=== PATIENT | male | born 1955 | race Caucasian/White ===

== ENCOUNTER 2023-10-21 08:19 | Observation (INO) | payer OTHER ==
--- OUTSIDE RECORDS SUMMARY | 2023-10-21 08:26 | XMS REPORT | Continuity of Care Document ---
Author Name Unknown Address [address] [place] [address] [place] [address] thconnect Address [address] [place] [address] [address] [place] [address] Care Team Providers Care Hammer Adjuster Name Role Phone Juan F Snow Attending Clinician Unavailable MANJEET PAT Attending Clinician Unavailable Encounters Start Date/Time End Date/Time Encounter Type Admission Type Attending Clinicians Care Facility Care Department Encounter ID Source 2023-07-30 09:46:00 2023-07-30 09:46:00 Outpatient Juan F Long [facility] [id number] [facility] 2021-12-25 14:05:00 2021-12-25 14:05:00 Outpatient Juan F Long [facility] [id number] [facility] 2021-04-03 10:49:00 2021-04-03 10:49:00 Outpatient MANJEET WALDRON [facility] [id number] [facility]
[2023-10-21 09:09] LABS: Protime INR 1.02
[2023-10-21 09:11] LABS: Hematocrit 48.5 % (39.6-49.0); Lymphocytes % 7.3 % (15.3-44.8); MCV 97.9 fL (80-100); MPV 8.2 fL (7.6-11.3); Platelets 205 thou/uL (152-406); RBC Red Blood Cell Count 4.95 M/uL (4.33-5.43)
[2023-10-21 09:31] LABS: Platelet Estimate ADEQ; White Blood Cell Scan OK (OK)
[2023-10-21 09:32] LABS: Blood Morphology Comment NOT SEEN (NOT SEEN)
[2023-10-21 09:33] LABS: Potassium 4.1 mEq/L (3.5-5.1)
--- NOTE | 2023-10-21 09:34 | RAD REPORT ---
EXAM DESCRIPTION: RAD - Chest Single View - 10/21/2023 9:21 am CLINICAL HISTORY: CHEST PAIN Chest pain. COMPARISON: No comparisons FINDINGS: Portable technique limits examination quality. Mild interstitial prominence bilaterally could be related to viral infection or mild interstitial pul monary edema. The heart is mildly enlarged. No displaced fractures.
--- NOTE | 2023-10-21 09:55 | RAD REPORT ---
EXAM DESCRIPTION: CT - Chest For Pe Angio - 10/21/2023 9:45 am CLINICAL HISTORY: Chest pain. eval for PE COMPARISON: No comparisons TECHNIQUE: CT angiogram of the pulmonary arteries was performed with MIP. All CT scans are performed using dose optimization technique as appropriate and may include automated exposure control or mA/KV adjustment according to patient size. FINDINGS: No evidence of pulmonary thromboembolism. No acute aortic finding demonstrated. Prominent COPD is present. Mild bibasilar lung opacities are present predominantly linear and ground- glass in character. This would favor mild atelectasis and alveolitis. No significant pericardial or pleural fluid. No concerning bony finding. IMPRESSION: No evidence of pulmonary thromboembolism. COPD with evidence of bibasilar lung opacities suggesting subsegmental atelectasis and alveolitis. Re active airway disease or small airway inflammation is possible.
[2023-10-21] MEDS ORDERED: CEFTRIAXONE 1000 MG/VIAL ONE (10:37)
[2023-10-21] MEDS ORDERED: NA CHLORIDE 0.9% 250 ML ONE (10:37)
[2023-10-21] MEDS ORDERED: AZITHROMYCIN 500 MG INJ IVPB ONE (10:37)
--- NOTE | 2023-10-21 10:37 | EDPHYS ---
Physician Documentation [facility] Name: William Blunt Age: 68 yrs Sex: Male : 1955 Arrival Date: 10/21/2023 Time: 08:19 Bed 6 Private MD: ED Physician Clive Bishop HPI: 10/21 09:15 This 68 yrs old Male presents to ER via Ambulatory with complaints of Chest ec2 Pain, Shortness Of Breath. 09:15 Patient arrives today for evaluation of chest pain. Patient reports he started ec2 experiencing some chest pain last night, reports pleuritic component to it. Patient reports chest tightness. Patient reports no previous ACS, no cardiac history. Patient reports no cough or cold symptoms, no vomiting, no fevers, no chills, no leg swelling. Reports no previous history of cardiac disease. Of note patient approximately 1 and half pack per day.. Historical: - Allergies: 08:39 No Known Allergies; iw - Home Meds: 08:39 lisinopril 20 mg Oral tablet [Active]; iw - PMHx: 08:39 Hypertensive disorder; iw - PSHx: 08:39 None; iw - Immunization history:: Adult Immunizations. - Social history:: Smoking status: Patient reports the use of cigarette tobacco products, smokes one pack cigarettes per day. ROS: 09:15 Constitutional: as per hpi ec2 Exam: 09:15 Constitutional: GEN: NAD Head: atraumatic Eyes: EOMI Ears: External ears are ec2 normal. CV: regular rate LUNGS: no respiratory distress ABD: non-distended SKIN: no evidence of rashes MSK: no evidence of trauma, no deformities, no crepitus NEURO: moves all extremities equally Vital Signs: 08:38 BP 140 / 91; Pulse 92; Resp 19; Temp 98.5(O); Pulse Ox 99% ; rs5 08:41 BP 134 / 94; Pulse 90; Resp 18; Temp 98.4; Pulse Ox 94% ; Weight 88 kg; Height 6 ft. 2 iw in. ; Pain 5/10; 10:25 BP 140 / 96; Pulse 88; Resp 17; Pulse Ox 99% on R/A; rs5 08:41 Body Mass Index 24.91 (88.00 kg, 187.96 cm) iw 08:41 Pain Scale: Adult iw MDM: 09:03 Patient medically screened. ec2 09:15 Data reviewed: vital signs. ED course: Patient arrives today for evaluation of chest ec2 pain. Examination remarkable for well-appearing nontoxic individual is otherwise in no acute distress. Will evaluate for ACS and PE with cardiac workup and PEscan. Low suspicion for dissection.. 10:09 ED course: Metabolic profile reassuring., CBC shows slight leukocytosis. BNP minimally ec2 elevated at 129, chest x-ray shows slight cardiomegaly with interstitial edema, CT scan of the chest shows COPD with bibasilar lung opacities, alveolitis versus possible atelectasis. Will give the patient antibiotics. . 10/21 08:29 Order name: Basic Metabolic Panel rn 10/21 08:29 Order name: CBC with Diff; Complete Time: 09:58 rn 10/21 08:29 Order name: NT PRO-BNP rn 10/21 08:29 Order name: PT-INR; Complete Time: 09:58 rn 10/21 08:29 Order name: Troponin HS rn 10/21 09:17 Order name: CBC Smear Scan; Complete Time: 09:58 EDMS 10/21 10:10 Order name: Blood Culture Adult (2) ec2 10/21 10:10 Order name: Lactate w/ 2H reflex if indic. ec2 10/21 10:10 Order name: Ptt, Activated ec2 10/21 10:52 Order name: Urinalysis w/ reflexes EDMS 10/21 10:52 Order name: Basic Metabolic Panel EDMS 10/21 10:52 Order name: Basic Metabolic Panel EDMS 10/21 10:52 Order name: Basic Metabolic Panel EDMS 10/21 10:52 Order name: Basic Metabolic Panel EDMS 10/21 10:52 Order name: Basic Metabolic Panel EDMS 10/21 10:52 Order name: CBC with Automated Diff EDMS 10/21 10:52 Order name: CBC with Automated Diff EDMS 10/21 10:52 Order name: CBC with Automated Diff EDMS 10/21 10:52 Order name: CBC with Automated Diff EDMS 10/21 10:52 Order name: CBC with Automated Diff EDMS 10/21 10:52 Order name: Lipid Profile EDMS 10/21 10:52 Order name: Lipid Profile EDMS 10/21 10:52 Order name: Magnesium EDMS 10/21 10:52 Order name: Magnesium EDMS 10/21 10:52 Order name: Magnesium EDMS 10/21 10:52 Order name: Magnesium EDMS 10/21 10:52 Order name: Magnesium EDMS 10/21 10:52 Order name: Troponin High Sensitivity [facility] 10/21 10:52 Order name: Troponin High Sensitivity [facility] 10/21 10:52 Order name: Troponin High Sensitivity [facility] 10/21 10:52 Order name: Troponin High Sensitivity [facility] 10/21 08:29 Order name: XRAY Chest (1 view); Complete Time: 09:58 rn 10/21 09:09 Order name: CT Chest For PE Angio; Complete Time: 09:58 2 10/21 08:29 Order name: EKG; Complete Time: 08:30 rn 10/21 10:48 Order name: CONS Physician Consult [facility] 10/21 08:29 Order name: Cardiac monitoring; Complete Time: 09:17 rn 10/21 08:29 Order name: EKG - Nurse/Tech; Complete Time: 09: rn 10/21 08:29 Order name: IV Saline Lock; Complete Time: 09: rn 10/21 08:29 Order name: Labs collected and sent; Complete Time: 09:17 rn 10/21 08:29 Order name: O2 Per Protocol; Complete Time: 09: rn 10/21 08:29 Order name: O2 Sat Monitoring; Complete Time: 09: rn 10/21 10:10 Order name: Accucheck; Complete Time: 10:57 2 10/21 10:10 Order name: IV Saline Lock - Large Bore; Complete Time: 10:57 2 10/21 10:10 Order name: Vital Signs; Complete Time: 10:56 2 10/21 10:15 Order name: Labs - recollect needed: green top; Complete Time: 10:46 bc6 Administered Medications: 10:56 Drug: Rocephin IV 1 grams IV at calculated rate once; Given slow IV push per pharmacy rs5 instructions Route: IV; Rate: calculated rate; Site: left antecubital; 11:10 Follow up: Response: No adverse reaction rs5 10:56 Drug: AZITHromycin IVPB 500 mg IVPB once over 1 hrs; (mix in 250 mL NS) Route: IVPB; rs5 Infused Over: 1 hrs; Site: left antecubital; 11:15 Follow up: Response: No adverse reaction rs5 11:19 Drug: Ketorolac IVP 15 mg IVP once Route: IVP; Site: left antecubital; rs5 11:40 Follow up: Response: No adverse reaction rs5 Disposition Summary: 10/21/23 10:36 Hospitalization Ordered Notes: Hospitalization Status: Inpatient Admission ec2 Provider: Pradeep Rahman ec2 Condition: Stable ec2 Problem: new ec2 Symptoms: are unchanged ec2 Bed/Room Type: Standard ec2 Location: Telemetry/MedSurg (Inpatient)(10/21/23 17:25) as6 Room Assignment: 224(10/21/23 17:25) as6 Diagnosis - Pneumonia, unspecified organism ec2 Forms: - Medication Reconciliation Form ec2 - SBAR form ec2 - Leadership Thank You Letter ec2 Signatures: Dispatcher [employer] EDMS Angelika Tate RN RN iw Alexander Manning MD MD rn Slawson, Ashby, RN RN as6 Shante Mayo RN RN kb3 Eduardo Jerez RN RN rs5 Karol Chamberlain6 Clive Bishop MD MD ec2 Corrections: (The following items were deleted from the chart) 09:18 09:15 ED course: Patient arrives today for evaluation of chest pain. Examination ec2 remarkable for reproducible chest wall TTP, will obtain cardiac workup, treat the patient pain with Toradol. Currently evaluating for ACS, will suspicion for PE dissection. Additionally considering costochondritis.. ec2 09:18 09:15 Patient arrives today for evaluation of chest pain. Patient reports he started ec2 experiencing some chest pain last night, reports pleuritic component to it. Patient reports chest tightness. Patient reports no previous ACS, no cardiac history. Patient reports no cough or cold symptoms, no vomiting, no fevers, no chills, no leg swelling. Reports no previous history of cardiac disease.. ec2 09:18 09:15 Constitutional: GEN: NAD Head: atraumatic Eyes: EOMI Ears: External ears are ec2 normal. CV: regular rate LUNGS: no respiratory distress ABD: non-distended SKIN: no evidence of rashes MSK: no evidence of trauma, reproducible chest wall TTP, no deformities, no crepitus NEURO: moves all extremities equally ec2 13:34 10:36 Telemetry/MedSurg (Inpatient) ec2 kb3 13:34 10:36 ec2 kb3 17:25 13:34 [facility] ER HOLD kb3 as6 17:25 13:34 ERHOLD- kb3 as6
--- NOTE | 2023-10-21 10:37 | ER ---
Nurse's Notes [facility] Name: William Blunt Age: 68 yrs Sex: Male : 1955 Arrival Date: 10/21/2023 Time: 08:19 Bed 6 Private MD: Diagnosis: Pneumonia, unspecified organism Presentation: 10/21 08:38 Chief complaint: Patient states: chest pain when he takes a deep breath , started iw yesterday , he was not feeling well last night, he can only take shallow breaths, denies cough , no fever, smokes 1.5 ppd. Coronavirus screen: Client presents with at least one sign or symptom that may indicate coronavirus-19. Ebola Screen: Patient negative for fever greater than or equal to 101.5 degrees Fahrenheit, and additional compatible Ebola Virus Disease symptoms Patient denies exposure to infectious person. Patient denies travel to an Ebola-affected area in the 21 days before illness onset. No symptoms or risks identified at this time. 08:38 Method Of Arrival: Ambulatory iw 08:38 Acuity: ROMULO 3 iw 08:38 Initial Sepsis Screen: Does the patient meet any 2 criteria? No. Patient's initial rs5 sepsis screen is negative. Does the patient have a suspected source of infection? No. Patient's initial sepsis screen is negative. Risk Assessment: Do you want to hurt yourself or someone else? Patient reports no desire to harm self or others. Onset of symptoms was October 20, 2023. Historical: - Allergies: 08:39 No Known Allergies; iw - Home Meds: 08:39 lisinopril 20 mg Oral tablet [Active]; iw - PMHx: 08:39 Hypertensive disorder; iw - PSHx: 08:39 None; iw - Immunization history:: Adult Immunizations. - Social history:: Smoking status: Patient reports the use of cigarette tobacco products, smokes one pack cigarettes per day. Screenin:45 [facility] ED Fall Risk Assessment (Adult) History of falling in the last 3 months, rs5 including since admission No falls in past 3 months (0 pts) Confusion or Disorientation No (0 pts) Intoxicated or Sedated No (0 pts) Impaired Gait No (0 pts) Mobility Assist Device Used No (0 pt) Altered Elimination No (0 pt) Score/Fall Risk Level 0 - 2 = Low Risk Oriented to surroundings, Maintained a safe environment. Abuse screen: Denies threats or abuse. Nutritional screening: No deficits noted. Tuberculosis screening: No symptoms or risk factors identified. Assessment: 08:45 General: Appears in no apparent distress. uncomfortable, Behavior is calm, cooperative. rs5 Pain: Complains of pain in chest Pain does not radiate. Pain currently is 7 out of 10 on a pain scale. Quality of pain is described as aching, Pain began 1 day ago. Is continuous. Neuro: Level of Consciousness is awake, alert, obeys commands, Oriented to person, place, time, situation. Cardiovascular: Patient's skin is warm and dry. Rhythm is regular. 08:45 Respiratory: Airway is patent Respiratory effort is even, unlabored, Respiratory rs5 pattern is regular, symmetrical, Parent/caregiver reports the patient having shortness of breath pain with movement. GI: Abdomen is round non-distended, Abd is soft and non tender X 4 quads. : No signs and/or symptoms were reported regarding the genitourinary system. EENT: No signs and/or symptoms were reported regarding the EENT system. Derm: Skin is intact, Skin is pink, warm \T\ dry. Musculoskeletal: Range of motion: intact in all extremities. 09:50 Reassessment: Patient and/or family updated on plan of care and expected duration. Pain rs5 level reassessed. Patient is alert, oriented x 3, equal unlabored respirations, skin warm/dry/pink. Patient denies pain at this time. Patient states feeling better. Patient states symptoms have improved. 10:10 Reassessment: No changes from previously documented assessment. rs5 20:03 Reassessment: report attempted. tm6 Vital Signs: 08:38 BP 140 / 91; Pulse 92; Resp 19; Temp 98.5(O); Pulse Ox 99% ; rs5 08:41 BP 134 / 94; Pulse 90; Resp 18; Temp 98.4; Pulse Ox 94% ; Weight 88 kg; Height 6 ft. 2 iw in. ; Pain 5/10; 10:25 BP 140 / 96; Pulse 88; Resp 17; Pulse Ox 99% on R/A; rs5 08:41 Body Mass Index 24.91 (88.00 kg, 187.96 cm) iw 08:41 Pain Scale: Adult iw ED Course: 08:26 Patient arrived in ED. kj1 08:29 Alexander Manning MD is Attending Physician. rn 08:39 Triage completed. iw 08:41 Arm band placed on. iw 08:45 Patient has correct armband on for positive identification. Bed in low position. Call rs5 light in reach. Side rails up X2. Client placed on continuous cardiac and pulse oximetry monitoring. NIBP monitoring applied. 08:45 No provider procedures requiring assistance completed. rs5 08:50 Inserted saline lock: 22 gauge in right forearm, using aseptic technique. iw 09:03 Clive Bishop MD is Attending Physician. ec2 09:09 Patient maintains SpO2 saturation greater than 95% on room air. iw 09:23 XRAY Chest (1 view) In Process Unspecified. EDMS 09:47 CT Chest For PE Angio In Process Unspecified. EDMS 10:35 Eduardo Jerez, CHRISTIAN is Primary Nurse. rs5 10:36 Pradeep Rahman MD is Hospitalizing Provider. ec2 10:40 Lab(s) recollected, by me, sent to lab. First set of blood cultures drawn by me. em1 10:40 Patient admitted, IV remains in place. rs5 10:46 Troponin HS Sent. em1 10:47 Lactate w/ 2H reflex if indic. Sent. em1 10:47 Ptt, Activated Sent. em1 Administered Medications: 10:56 Drug: Rocephin IV 1 grams IV at calculated rate once; Given slow IV push per pharmacy rs5 instructions Route: IV; Rate: calculated rate; Site: left antecubital; 11:10 Follow up: Response: No adverse reaction rs5 10:56 Drug: AZITHromycin IVPB 500 mg IVPB once over 1 hrs; (mix in 250 mL NS) Route: IVPB; rs5 Infused Over: 1 hrs; Site: left antecubital; 11:15 Follow up: Response: No adverse reaction rs5 11:19 Drug: Ketorolac IVP 15 mg IVP once Route: IVP; Site: left antecubital; rs5 11:40 Follow up: Response: No adverse reaction rs5 Medication: 11:22 VIS not applicable for this client. rs5 Outcome: 10:36 Decision to Hospitalize by Provider. ec2 10:40 Admitted to ER Hold. Please see [facility] for further documentation. rs5 10:40 Condition: stable 10:40 Instructed on the need for admit, 20:32 Patient left the ED. jb4 Signatures: Dispatcher [employer] Angelika Conway, RN Alexander Orona MD MD rn Martinez, Eric em1 Luciano Roman RN RN jb4 Naheed Adler kj1 Eduardo Jerez RN RN rs5 Clive Bishop MD MD ec2 Lorin Lane RN RN tm6
--- NOTE | 2023-10-21 10:44 | P.HP ---
Certification for Inpatient Patient admitted to: Observation With expected LOS: <2 Midnights Practitioner: I am a practitioner with admitting privileges, knowledge of patient current condition, hospital course, and medical plan of care. Services: Services provided to patient in accordance with Admission requirements found in Title 42 Section 412.3 of the Code of Federal Regulations Patient History Date of Service: 10/21/23 Reason for admission: Chest pain, shortness of breath History of Present Illness: 68-year-old male with a past medical history of hypertension, tobacco use, presents to the emergency room with chest pain shortness of breath. He reports shortness of breath chest pain started yesterday. He reports pleuritic chest pain, he denies history of [place], no history of cardiovascular stents. Reports taking lisinopril 20 mg daily for hypertension. He reports smoking 1 to 2 packs of cigarettes daily. He denies leg swelling, dizziness, nausea vomiting diarrhea, productive cough. He reports recent colonoscopy with Dr. Maldonado for abnormal Cologuard, he is completed colonoscopy and he is scheduled for outpatient EGD. Plan to admit for pneumonia, pleuritic chest pain, dyspnea. Vital signs BP 134 / 94; Pulse 90; Resp 18; Temp 98.4; Pulse Ox 94% ; Weight 88 kg; Height 6 ft. 2 iw in. ; Pain 5/10; CT scan of the chest shows COPD with bibasilar lung opacities, alveolitis versus possible atelectasis. Will give the patient antibiotics, pulmonary, laboratory evaluation mild leukocytosis 13.50, early left shift 81.7, mild hyponatremia 135 BNP elevated at 129 troponin 3.8 Allergies No Known Allergies Allergy (Unverified 10/21/23 10:53) Review of Systems per HPI Physical Examination - Physical Exam General: Alert, In no apparent distress, Oriented x3 HEENT: Atraumatic, Normocephalic Neck: Supple, 2+ carotid pulse no bruit Respiratory: Normal air movement, Diminished Cardiovascular: Normal pulses, Regular rate/rhythm Capillary refill: <2 Seconds Gastrointestinal: Normal bowel sounds, Soft and benign Musculoskeletal: No clubbing, No swelling Integumentary: No rashes, No breakdown Neurological: Normal speech, Normal strength at 5/5 x4 extr - Studies Laboratory Data (last 24 hrs) 10/21/23 10/21/23 10/21/23 08:50 08:50 08:50 WBC 13.50 H Hgb 17.4 Hct 48.5 Plt Count 205 PT 11.2 INR 1.02 Sodium 135 L Potassium 4.1 BUN 9 Creatinine 0.95 Glucose 148 H Assessment and Plan - Plan Assessment plan Acute hypoxic respiratory failure secondary to pneumonia COPD exacerbation Tobacco use Heavy tobacco use Pulmonary consult, IV antibiotics, nebs, Educated on tobacco cessation laboratory evaluation mild leukocytosis 13.50, early left shift 81.7, mild hyponatremia 135 BNP elevated at 129 troponin 3.8 He reports smoking 1 to [address] daily CT scan of the chest shows COPD with bibasilar lung opacities, alveolitis versus possible atelectasis. Will give the patient antibiotics, pulmonary, laboratory evaluation mild leukocytosis 13.50, early left shift 81.7, NicoDerm patches Chest pain Elevated BNP Essential hypertension Echo, trend troponins, BNP elevated at 129, troponin 3.8 Reports taking lisinopril 20 mg daily for hypertension. Vital signs BP 134 / 94; Pulse 90; Resp 18; Temp 98.4; Pulse Ox 94% ; Weight 88 kg; Height 6 ft. 2 iw in. ; Pain 5/10; Echo ordered Mild hyponatremia Sodium 135 Full code DVT Lovenox Diet cardiac Discharge Plan: Home Plan to discharge in: 24 Hours - Advance Directives Does patient have a Living Will: No Does patient have a Durable POA for Healthcare: No - Code Status/Comfort Care Code Status: Full Code Critical Care: No Time Spent Managing Pts Care (In Minutes): 55
[2023-10-21] MEDS ORDERED: ACETAMINOPHEN 500 MG TAB PO PRN (10:47)
[2023-10-21] MEDS ORDERED: ONDANSETRON 4 MG/2 ML VIAL IV PRN (10:47)
[2023-10-21] MEDS ORDERED: ALBUTEROL 2.5 MG/3 ML NEB SOL NEB PRN (10:47)
[2023-10-21] MEDS ORDERED: MORPHINE 2 MG/ML SYR IV PRN (10:50)
[2023-10-21] MEDS ORDERED: KETOROLAC 30 MG/ML INJ ONE (11:16)
[2023-10-21 11:57] LABS: Troponin High Sensitivity 3.8 pg/mL (<58.9)
--- NOTE | 2023-10-21 12:43 | P.CNS ---
Date of Consult: 10/21/23 Reason for Consult: COPD exacerbation Chief Complaint: Shortness of breath upper upper abdominal discomfort History of Present Illness: Patient is 68 years of age a very heavy smoker admitted with acute on chronic worsening of shortness of breath prior history of COPD complains sudden onset of upper abdominal discomfort which has resolved no other past medical history Allergies No Known Allergies Allergy (Unverified 10/21/23 10:53) Review of Systems 10-point ROS is otherwise unremarkable Respiratory: Shortness of Breath Physical Examination Temp Pulse Resp BP Pulse Ox 98 F 90 15 119/71 95 10/21/23 12:00 10/21/23 12:00 10/21/23 12:00 10/21/23 12:00 10/21/23 12:00 General: Alert, Oriented x3 HEENT: Atraumatic Neck: Supple Respiratory: Clear to auscultation bilaterally, Diminished Cardiovascular: No edema, Regular rate/rhythm, Normal S1 S2 Gastrointestinal: Normal bowel sounds, Soft and benign Musculoskeletal: No clubbing, No swelling Laboratory Data (last 24 hrs) 10/21/23 10/21/23 10/21/23 10:40 08:50 08:50 WBC 13.50 H Hgb 17.4 Hct 48.5 Plt Count 205 PT 11.2 INR 1.02 APTT 32.4 Sodium Potassium BUN Creatinine Glucose 10/21/23 08:50 WBC Hgb Hct Plt Count PT INR APTT Sodium 135 L Potassium 4.1 BUN 9 Creatinine 0.95 Glucose 148 H - Problems (1) COPD exacerbation Current Visit: Yes Status: Acute Plan: Patient is 68 years of age very heavy smoker admitted with COPD exacerbation chest x-ray shows COPD changes CT angiogram is negative mild interstitial basal changes commend starting patient on some steroids inhalers possible mild pneumonia add p.o. doxycycline patient is not risk for resistant organisms add Dulera p.o. prednisone signs stable oxygenation satisfactory and no longer has any abdominal discomfort (2) Nicotine use disorder Current Visit: Yes Status: Acute Plan: Patient smokes heavily recommend use of Chantix and NicoDerm patches counseled about smoking also about the risk of lung cancer performed and he needs to have yearly CAT scans done until the age of 79
[2023-10-21] MEDS: predniSONE 20 MG TAB PO SCH (13:00)
[2023-10-21] MEDS: DULERA 200/5 (MOMETASONE/FORMOTEROL) INHALER IH SCH (13:00)
[2023-10-21] MEDS ORDERED: predniSONE 20 MG TAB ONE (14:17)
[2023-10-21 14:22] VITALS: BMI 25.7
[2023-10-21] MEDS: NICOTINE 21 MG/PAT TD SCH (20:56)
[2023-10-21] MEDS: DOXYCYCLINE 100 MG CAP PO SCH (20:57)
[2023-10-21 21:56] LABS: Specific Gravity > 1.030 (1.005-1.030); Urine Bacteria None Seen /HPF (<20); Urine Bilirubin NEGATIVE (Negative); Urine Blood Negative (Negative); Urine Clarity Clear (Clear); Urine Color Yellow (Yellow); Urine Glucose 1+ (Negative); Urine Protein TRACE (Negative); Urine RBC <5 /HPF (None Seen); Urine Urobilinogen Normal (Normal); Urine pH 6.5 (5.0-7.0)
[2023-10-22 04:43] LABS: Absolute Lymphocytes (CBC) 1.2 K/uL (0.7-4.9); Hematocrit 45.5 % (39.6-49.0); Lymphocytes % 9.2 % (15.3-44.8); MCV 98.5 fL (80-100); MPV 8.2 fL (7.6-11.3); Platelets 197 thou/uL (152-406); RBC Red Blood Cell Count 4.62 M/uL (4.33-5.43)
[2023-10-22 05:19] LABS: Magnesium 2.3 mg/dL (1.6-2.4); Phosphorus 3.9 mg/dL (2.5-4.9); Potassium 4.2 mEq/L (3.5-5.1); Troponin High Sensitivity 7.7 pg/mL (<58.9)
--- NOTE | 2023-10-22 07:10 | P.DS ---
Admission Date: 10/21/23 Discharge Date: 10/22/23 Disposition: ROUTINE DISCHARGE Discharge Condition: FAIR Reason for Admission: Chest pain, shortness of breath Brief History of Present Illness: 68-year-old male with a past medical history of hypertension, tobacco use, presents to the emergency room with chest pain shortness of breath. He reports shortness of breath chest pain started yesterday. He reports pleuritic chest pain, he denies history of [place], no history of cardiovascular stents. Reports taking lisinopril 20 mg daily for hypertension. He reports smoking 1 to 2 packs of cigarettes daily. He denies leg swelling, dizziness, nausea vomiting diarrhea, productive cough. He reports recent colonoscopy with Dr. Maldonado for abnormal Cologuard, he is completed colonoscopy and he is scheduled for outpatient EGD. Plan to admit for pneumonia, pleuritic chest pain, dyspnea. Vital signs BP 134 / 94; Pulse 90; Resp 18; Temp 98.4; Pulse Ox 94% ; Weight 88 kg; Height 6 ft. 2 iw in. ; Pain 5/10; CT scan of the chest shows COPD with bibasilar lung opacities, alveolitis versus possible atelectasis. Will give the patient antibiotics, pulmonary, laboratory evaluation mild leukocytosis 13.50, early left shift 81.7, mild hyponatremia 135 BNP elevated at 129 troponin 3.8 Hospital Course: 68 year-old male patient presented with chest pain, shortness of breath. Was noted to have pneumonia. Condition improved with IV antibiotics, nebulizers. Pulmonary consult. Patient tolerating diet, stable for discharge to home with follow-up appointment with primary care physician, sleep lab technician PROBLEM: Pneumonia COPD exacerbation Tobacco use Chest pain Abnormal EKG New prescriptions doxycycline antibiotic 1 twice daily for 7 days Albuterol inhaler 1-2 puffs every 4-6 hours as needed for cough shortness of breath wheezing, Dulera inhaler 2 puffs twice daily for 30 days Nicotine patch 1 daily for 30 days Prednisone 20 mg 1 tablet twice daily for 5 days Educated on the risks of smoking, encourage smoking cessation patient verbalized understanding Serial troponins was negative, lipid panel was normal CTA of the chest COPD with evidence of bibasilar lung opacities suggesting subsegmental atelectasis and alveolitis. Reactive airway disease or small airway inflammation is possible. Follow-up with sleep lab technician Recommend tobacco cessation Continue home medicines as previously prescribed Discharged home on antibiotics doxycycline, Dulera p.o. prednisone, GOAL: Clear understanding of disease process INSTRUCTIONS: Physician Discharge Instructions: -Follow-up with PCP in 1 to 2 weeks -Please call Dr. Rahman at [phone] if any questions regarding hospital stay -Please call nursing station at [phone] if any nursing or medication questions -Return to the emergency room if symptoms worsen Diet: ADA, low sodium Activity: Fall precautions : Vital Signs/Physical Exam: Temp Pulse Resp BP Pulse Ox 98.2 F 89 16 117/70 97 10/22/23 04:00 10/22/23 04:00 10/22/23 04:00 10/22/23 04:00 10/22/23 04:00 Laboratory Data at Discharge: WBC 12.50 thou/uL (4.3-10.9) H 10/22/23 04:22 Hgb 16.3 g/dL (13.6-17.9) 10/22/23 04:22 Hct 45.5 % (39.6-49.0) 10/22/23 04:22 Plt Count 197 thou/uL (152-406) 10/22/23 04:22 PT 11.2 SECONDS (9.5-12.5) 10/21/23 08:50 INR 1.02 10/21/23 08:50 APTT 32.4 SECONDS (24.3-36.9) 10/21/23 10:40 Sodium 136 mEq/L (136-145) 10/22/23 04:22 Potassium 4.2 mEq/L (3.5-5.1) 10/22/23 04:22 BUN 12 mg/dL (7-18) 10/22/23 04:22 Creatinine 1.06 mg/dL (0.70-1.30) 10/22/23 04:22 Glucose 152 mg/dL (74-106) H 10/22/23 04:22 Phosphorus Cancelled 10/22/23 05:00 Magnesium 2.3 mg/dL (1.6-2.4) 10/22/23 04:22 Triglycerides 59 mg/dL (<150) 10/22/23 04:22 Cholesterol 152 mg/dL (<200) 10/22/23 04:22 HDL Cholesterol 60 mg/dL (40-60) 10/22/23 04:22 Cholesterol/HDL Ratio 2.53 10/22/23 04:22 Home Medications: Doxycycline Hyclate 100 mg PO BID 7 Days #14 tab 10/21/23 lisinopriL [Lisinopril] 20 mg PO DAILY 10/21/23 Albuterol Inhaler [Ventolin Inhaler*] 2 puff IH Q6H PRN 14 Days #1 inh 10/22/23 Mometasone/Formoterol [Dulera 200 Mcg/5 Mcg Inhaler] 2 puff IH BID 30 Days #1 inhaler 10/22/23 Nicotine [Nicoderm*] 21 mg TD DAILY 30 Days #30 patch 10/22/23 predniSONE [Prednisone*] 20 mg PO BID 5 Days #10 tab 10/22/23 New Medications: Doxycycline Hyclate 100 mg PO BID 7 Days #14 tab Mometasone/Formoterol [Dulera 200 Mcg/5 Mcg Inhaler] 2 puff IH BID 30 Days #1 inhaler Nicotine [Nicoderm*] 21 mg TD DAILY 30 Days #30 patch predniSONE [Prednisone*] 20 mg PO BID 5 Days #10 tab Albuterol Inhaler [Ventolin Inhaler*] 2 puff IH Q6H PRN 14 Days #1 inh PRN Reason: Shortness Of Breath Physician Discharge Instructions: 68 year-old male patient presented with chest pain, shortness of breath. Was noted to have pneumonia. Condition improved with IV antibiotics, nebulizers. Pulmonary consult. Patient tolerating diet, stable for discharge to home with follow-up appointment with primary care physician, sleep lab technician PROBLEM: Pneumonia COPD exacerbation Tobacco use Chest pain CTA of the chest COPD with evidence of bibasilar lung opacities suggesting subsegmental atelectasis and alveolitis. Reactive airway disease or small airway inflammation is possible. Follow-up with sleep lab technician Recommend tobacco cessation Continue home medicines as previously prescribed Discharged home on antibiotics doxycycline, Dulera p.o. prednisone, GOAL: Clear understanding of disease process INSTRUCTIONS: Physician Discharge Instructions: -Follow-up with PCP in 1 to 2 weeks -Please call Dr. Rahman at [phone] if any questions regarding hospital stay -Please call nursing station at [phone] if any nursing or medication questions -Return to the emergency room if symptoms worsen Diet: ADA, low sodium Activity: Fall precautions Diet: AHA Activity: Fall precautions Followup: Juan F Snow MD [Primary Care Provider] - Alfonso Frye MD [ACTIVE - CAN ADMIT] - Time spent managing pt's care (in minutes): 55
[2023-10-22] MEDS: ENOXAPARIN 40 MG/0.4 ML SQ SCH (08:26)
[2023-10-22] MEDS ORDERED: CEFTRIAXONE 1,000 MG in NA CHLORIDE 0.9% 50 ML IVPB SCH (09:00)
[2023-10-22] MEDS ORDERED: AZITHROMYCIN IV 500 MG in NA CHLORIDE 0.9% 250 ML IVPB SCH (09:00)
[2023-10-22 09:10] VITALS: O2SAT 97
[2023-10-22 09:59] VITALS: TEMP 97.8
--- NOTE | 2023-10-22 11:42 | P.PN ---
Subjective Date of Service: 10/22/23 Chief Complaint: COPD exacerbation Subjective: Improving (Patient is improving doing better tolerating Dulera) Review of Systems Unremarkable Physical Examination - Vital Signs Temperature: 97.8 F Blood Pressure: 127/79 Pulse: 82 Respirations: 18 Pulse Ox (%): 94 - Physical Exam General: Alert, Oriented x3 Respiratory: Clear to auscultation bilaterally Cardiovascular: No edema, Regular rate/rhythm Assessment And Plan - Current Problems (Diagnosis) (1) COPD exacerbation Current Visit: Yes Status: Acute Plan: Patient admitted with COPD exacerbation doing better we will discharge on doxycycline prednisone and Dulera opponent's are negative white count is declining vital signs are stable blood pressure satisfactory oxygenation satisfactory will be discharged follow-up with me in 2 weeks (2) Nicotine use disorder Current Visit: Yes Status: Acute Plan: Patient smokes heavily recommend use of Chantix and NicoDerm patches counseled about smoking also about the risk of lung cancer performed and he needs to have yearly CAT scans done until the age of 79
--- NOTE | 2023-10-22 12:54 | ECHO ---
HEIGHT: 6 ft 2 in WEIGHT: 200 lb 0 oz DATE OF STUDY: 10/22/[address]: Lilli Pack OPERA SINGERJay 2-DIMENSIONAL: YES M.MODE: YES DOPPLER: YES COLOR FLOW: YES TDS: PORTABLE: YES DEFINITY: BUBBLE STUDY: DIAGNOSIS: CHEST PAIN CARDIAC HISTORY: CATHERIZATION: NO SURGERY: NO PROSTHETIC VALVE: NO PACEMAKER: NO MEASUREMENTS (cm) DIASTOLIC (NORMALS) SYSTOLIC (NORMALS) IVSd 1.2 (0.6-1.2) LA Diam 2.6 (1.9-4.0) LVEF 52% LVIDd 3.2 (3.5-5.7) LVIDs 2.4 (2.0-3.5) %FS 26% LVPWd 1.2 (0.6-1.2) Ao Diam 2.5 (2.0-3.7) 2 DIMENSIONAL ASSESSMENT: RIGHT ATRIUM: NORMAL LEFT ATRIUM: NORMAL RIGHT VENTRICLE: NORMAL LEFT VENTRICLE: NORMAL TRICUSPID VALVE: NORMAL MITRAL VALVE: NORMAL PULMONIC VALVE: NORMAL AORTIC VALVE: NORMAL PERICARDIAL EFFUSION: NONE AORTIC ROOT: NORMAL LEFT VENTRICULAR WALL MOTION: NORMAL DOPPLER/COLOR FLOW: NORMAL COMMENTS: 1. NORMAL LEFT VENTRICULAR SYSTOLIC FUCNTION, EJECTION FRACTION 55-60%, NORMAL WALL MOTION 2. NORMAL DIASTOLIC FUNCTION TECHNOLOGIST: SHYAM SIEGEL
[2023-10-22] MEDS ORDERED: DULERA 200/5 (MOMETASONE/FORMOTEROL) INHALER IH SCH (13:16)
[2023-10-22 14:43] VITALS: BP 99/79
[2023-10-22] MEDS: DOXYCYCLINE 100 MG CAP PO SCH (14:48)
[2023-10-22] MEDS: ALBUTEROL INHALER 200 PUFF/6.7 GM IH PRN (14:49)
[2023-10-22] MEDS ORDERED: DOXYCYCLINE 100 MG CAP PO SCH (21:00)
--- NOTE | 2023-10-25 14:41 | EKG ---
Test Date: 2023-10-22 Test Time: 08:39:26 911 Telecommunicator: SIDDHARTHA MEASUREMENT RESULTS: Intervals: Rate: 75 AK: 166 QRSD: 90 QT: 370 QTc: 413 [place]: P: 59 AK: 166 QRS: 27 T: 55 INTERPRETIVE STATEMENTS: Normal sinus rhythm Possible Left atrial enlargement Nonspecific ST abnormality Abnormal ECG Compared to ECG 10/21/2023 08:36:06 ST (T wave) deviation now present Electronically Signed On 10-25-23 14:31:04 DINKEY OPERATOR by Orlando Elliott
--- NOTE | 2023-10-25 14:42 | EKG ---
Test Date: 2023-10-21 Test Time: 22:27:27 Technology Sales Specialist: IMER MEASUREMENT RESULTS: Intervals: Rate: 74 IA: 168 QRSD: 74 QT: 358 QTc: 397 [place]: P: 63 IA: 168 QRS: 25 T: 69 INTERPRETIVE STATEMENTS: Normal sinus rhythm Possible Left atrial enlargement ST elevation, consider inferolateral injury or acute infarct ACUTE IN Abnormal ECG Compared to ECG 10/21/2023 08:36:06 ST (T wave) deviation now present Myocardial infarct finding now present Electronically Signed On 10-25-23 14:31:25 MANAGER COMPENSATION by Orlando Elliott
--- NOTE | 2023-10-25 14:45 | EKG ---
Test Date: 2023-10-21 Test Time: 08:36:06 Pulvi Mixer Operator: YEMI MEASUREMENT RESULTS: Intervals: Rate: 88 SC: 166 QRSD: 82 QT: 342 QTc: 413 [place]: P: 55 SC: 166 QRS: 31 T: 62 INTERPRETIVE STATEMENTS: Normal sinus rhythm Possible Acute pericarditis Abnormal ECG No previous ECG available for comparison Electronically Signed On 10-25-23 14:33:04 C WEB DEVELOPER by Orlando Elliott
== END 2023-10-22 16:22 | disposition home or self-care (01) ==
LOC: ER 08:19 → INTOOBSV 10:44 → ERHOLD 10:44 → 2ND 17:28
PROVIDERS: ADMIT Hospitalist; ATTEND Hospitalist
DX: J18.9 Pneumonia, unspecified organism (principal); J96.01 Acute respiratory failure with hypoxia; J44.1 Chronic obstructive pulmonary disease with (acute) exacerbation; E87.1 Hypo-osmolality and hyponatremia; J98.11 Atelectasis; I10 Essential (primary) hypertension; R94.31 Abnormal electrocardiogram [ECG] [EKG]; R79.89 Other specified abnormal findings of blood chemistry; F17.210 Nicotine dependence, cigarettes, uncomplicated; Z71.6 Tobacco abuse counseling; Z79.899 Other long term (current) drug therapy
CPT/HCPCS: 36415; 71045; 71275; 80048; 80061; 81001; 83605; 83735; 83880; 84100; 84484; 85025; 85610; 85730; 87040; 93005; 93306; 94760; G0378; J0696; J3535; J7050; J7512; Q9967

== ENCOUNTER 2024-02-15 07:22 | Day surgery (SDC) | payer OTHER ==
[2024-02-10 13:45] LABS: PT Prothrombin Time 10.3 SECONDS (9.5-12.5); PTT, Activated Partial Thromb 28.2 SECONDS (24.3-36.9); Protime INR 0.93
[2024-02-10 13:46] LABS: Anion Gap 8.9 mEq/L (5.0-15.0); Potassium 3.9 mEq/L (3.5-5.1)
[2024-02-10 13:58] LABS: Absolute Basophils 0.1 K/uL (0-0.5); Absolute Eosinophils 0.2 K/uL (0-0.5); Absolute Lymphocytes (CBC) 2.5 K/uL (0.7-4.9); Absolute Monocytes 0.9 K/uL (0.1-1.3); Absolute Neutrophil 4.8 K/uL (1.8-8.0); Basophils % 0.8 % (0-1.3); Eosinophils % 2.6 % (0-4.4); Hematocrit 48.9 % (39.6-49.0); Hemoglobin 17.3 g/dL (13.6-17.9); Lymphocytes % 29.7 % (15.3-44.8); MCH 35.3 pg (27.0-35.0); MCHC 35.4 g/dL (32.0-36.0); MCV 99.7 fL (80-100); MPV 8.8 fL (7.6-11.3); Neutrophils % 55.9 % (41.7-73.7); Nucleated Red Blood Cells % 0.1 % (0-0); Platelets 209 thou/uL (152-406); Red Cell Distribution Width 12.5 % (12.1-15.2)
[2024-02-10 14:06] LABS: Blood Morphology Comment NOT SEEN (NOT SEEN); Platelet Estimate ADEQ; White Blood Cell Scan OK (OK)
--- NOTE | 2024-02-14 15:07 | EKG ---
Test Date: 2024-02-10 Test Time: 13:19:26 Bond Broker: NAPOLEON MEASUREMENT RESULTS: Intervals: Rate: 67 MN: 172 QRSD: 138 QT: 392 QTc: 414 [place]: P: 72 MN: 172 QRS: 97 T: 42 INTERPRETIVE STATEMENTS: Normal sinus rhythm Right bundle branch block Abnormal ECG Compared to ECG 10/22/2023 08:39:26 Right bundle-branch block now present ST (T wave) deviation no longer present Electronically Signed On 02-14-24 14:55:42 CDT by Orlando Elliott
[2024-02-15] MEDS ORDERED: NA CHLORIDE 0.9% 500 ML ONE (07:37)
[2024-02-15] MEDS ORDERED: VERAPAMIL HCL 10 MG/4 ML VIAL IV ONE (09:15)
[2024-02-15] MEDS ORDERED: FENTANYL CITR 100 MCG/2 ML ONE (09:15)
[2024-02-15] MEDS ORDERED: TICAGRELOR 90 MG TABLET PO ONE (09:16)
[2024-02-15] MEDS ORDERED: HEPARIN 5000 UNIT/ML 1 ML VIAL ONE (09:16)
[2024-02-15] MEDS ORDERED: ATROPINE SULF 1 MG/10 ML SYR IV ONE (09:16)
[2024-02-15] MEDS ORDERED: MIDAZOLAM HCL 2 MG/2 ML INJ ONE (09:16)
[2024-02-15] MEDS ORDERED: HEPARIN 10,000 UNIT/10 ML VIAL IV ONE (09:16)
[2024-02-15] MEDS ORDERED: CLOPIDOGREL 75 MG TABLET ONE (09:17)
[2024-02-15] MEDS ORDERED: HEPA 1000U/500MLS 2,000 UNIT/1,000 ML BAG IV ONE (09:17)
[2024-02-15] MEDS ORDERED: ASPIRIN 325 MG TAB ONE (09:17)
[2024-02-15] MEDS ORDERED: LIDOCAINE 1% 20 ML MDV ONE (09:18)
[2024-02-15 14:28] VITALS: BP 126/76; O2SAT 94
--- NOTE | 2024-02-15 20:46 | OP ---
Date of Procedure: 02/15/2024 Surgeon: Suhas Byrne Procedures Performed: 1.Left heart catheterization. 2.Selective coronary angiogram. Indication For Procedure: Shortness of breath, abnormal stress test. Access: Right radial, closed by TR band. Sedation Time: 10 minutes with 2 of Versed and 50 of fentanyl. Complications: None. Estimated Blood Loss: Less than 50 cc. Description Of Procedure: After risks, and benefits, and alternatives were explained to the patient, patient agreed to proceed with the procedure and signed an informed consent. The patient was evin t back to the [facility] programmer, prepped and draped in the usual sterile fashion. Time-out was performed. Se dation was administered. The right radial ultrasound-guided micropuncture technique was obtained. A 5-[place]of [place] 4.0 catheter was advanced over a J-wire to the LV cavity. LVEDP was obtained. Pullb ack did not show any gradient. Same catheter was used for selective coronary angiogram of the left a nd right coronary artery system. At the end of procedure, [place] 4.0 was removed over the J-wire. Sh eath was removed and TR band was applied. Hemostasis was achieved and patient was moved back to [facility] in stable condition. Findings: 1.Left main normal. 2.LAD normal. 3.Left circ normal. 4.RCA normal. 5.LVEDP 17 mmHg. Assessment And Plan: Normal coronaries. Plan will be to continue medical management. SANDY Voice ID: [id number] Report ID: [id number]
== END 2024-02-15 12:45 | disposition home or self-care (01) ==
LOC: CCL 07:22
PROVIDERS: ATTEND Internal Medicine Interventional Cardiology
DX: R94.39 Abnormal result of other cardiovascular function study (principal); R07.9 Chest pain, unspecified; R06.02 Shortness of breath; I10 Essential (primary) hypertension; E78.5 Hyperlipidemia, unspecified; J44.1 Chronic obstructive pulmonary disease with (acute) exacerbation; F17.210 Nicotine dependence, cigarettes, uncomplicated; Z79.899 Other long term (current) drug therapy; Z82.49 Family history of ischemic heart disease and other diseases of the circulatory system
CPT/HCPCS: 93005; 85025; 80048; 36415; 85610; 85730; 93458; 76937; C1893; Q9966; J1644; J2001; J2250; J3010; J7040; 99152; 99153; J0461